=== PATIENT | male | born 1985 ===

== ENCOUNTER 2016-08-14 13:24 | Emergency (ER) | payer OTHER ==
--- NOTE | 2016-08-14 14:37 | ED NURSING NOTES ---
Clinical Report - Nurses Located Within [facility] [place] [address] 08/14/2016 13:25 Patient: YVONNE PRECIADO TRIAGE Acuity: LEVEL 3. Chief Complaint: DRUG OVERDOSE. Alert. No acute distress. FARIBA COMA SCORE: Fariba Coma Scale: 15- eyes open spontaneously (4); best verbal response- oriented x 4 (5); best motor response- obeys commands (6). --13:32 Flores Fitzpatrick R.N. 13:26 08/14/16. BP: 133/74. HR: 108. RR: 20. O2 saturation: 98%. Temp: 98.1 F (oral). Pain level now: 0/10. --13:32 Flores Fitzpatrick R.N. Weight: 77.1 kg stated. Height/Length: 69 inches Per Patient. BMI: 25.1. --13:30 Flores Fitzpatrick R.N. Medications None. --13:28 Flores Fitzpatrick R.N. Allergies No Known Drug Allergy. --13:28 Flores Fitzpatrick R.N. History Arrived by EMS. Historian: EMS and patient. Unaccompanied. Primary physician (none). This occurred just prior to arrival. ( Pt states he swallowed "4 times what I usually smoke" of meth in an attempt to hide the meth from the police.). 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 SOCIAL HX: Current every day heavy tobacco smoker (cigarette)- less than 1 pack per day. History of heavy drug use: heroin, methamphetamines, marijuana. No alcohol use. FALL RISK ASSESSMENT: Fall risk assessment completed. No fall risk identified. NUTRITIONAL RISK ASSESSMENT: The nutritional risk assessment revealed no deficiencies. FUNCTIONAL ASSESSMENT: Functional assessment: no impairments noted. LEARNING NEEDS ASSESSMENT: The learning needs assessment revealed no barriers. SKIN INTEGRITY ASSESSMENT: Skin integrity risk assessment completed. No skin integrity risk identified. --13:32 Flores Fitzpatrick R.N. Assessment GENERAL / NEURO / PSYCH: Alert. Oriented X 4. Appears in no acute distress. Patient appears calm and cooperative. RESPIRATORY: Respirations not labored. CVS: Capillary refill less than 2 seconds. GI / : Abdomen soft and nontender. SKIN: Mucous membranes are pink. Skin is warm and dry. --13:32 Flores Fitzpatrick R.N. Interventions ID band on patient. To treatment room. --13:32 Flores Fitzpatrick R.N. PHYSICAL ASSESSMENT 13:32 08/14/16. Ambulatory to room. GENERAL / NEURO / PSYCH: Alert. Oriented X 4. Appears in no acute distress. Patient appears calm and cooperative. Gag reflex present. Speech within normal limits. RESPIRATORY: Respirations not labored. CVS: Capillary refill less than 2 seconds. GI / : Abdomen soft and nontender. SKIN: Skin intact. Skin is warm and dry. Skin color is within normal limits. Affect appears within normal limits. --13:32 Flores Fitzpatrick R.N. NURSING PROGRESS NOTES grain sampler, pulse oximeter and NIBP monitor placed on patient; monitor alarms on. Patient gowned. Two patient identifiers checked. Call light placed in reach. Side rails up x 1. Bed placed in lowest position. Brakes of bed on. Patient ready for evaluation- chart flagged and PAGINATOR notified. --13:32 Flores Fitzpatrick R.N. 13:36 08/14/2016 Site #1 started via IV in the left antecubital space with an 20g angiocath, with aseptic technique and good blood return; one attempt. Blood drawn: rainbow set. Labeled in the presence of the patient and sent to the lab. Saline lock flushed with 10 mL saline. --13:36 Flores Fitzpatrick R.N. EKG time: (1328). EKG was ordered, performed by a tech and shown to the ED physician. --14:01 Ju Haq 14:04 08/14/16. Checked patient name and birthdate: patient confirmed urine collected with return of yellow-colored clear urine; sample sent to lab for urinalysis and drug screen. Specimen labeled in the presence of the patient. --14:04 Flores Fitzpatrick R.N. DISPOSITION / DISCHARGE Departure time: 14:36 Aug 14 2016. Condition at departure: stable. The patient left the Emergency Department against medical advice; patient was accompanied by a custodial manager. The patient appears to be alert, oriented x4, coherent and in no acute distress. The patient notified the ED staff prior to leaving the department and stated is leaving the ED (personal). Prior to leaving the ED, he was advised to stay for completion of treatment and return if needed. He was informed of the risks of leaving and verbalized understanding of these risks. Patient signed form prior to leaving. He left the Emergency Department ambulatory and via private vehicle. --14:36 Flores Fitzpatrick R.N. 14:33 08/14/16. BP: 142/76. HR: 108. RR: 18. O2 saturation: 100% on room air. Temp: 98.4 F. Pain level now: 0/10. --14:36 Flores Fitzpatrick R.N. 14:36 08/14/2016 Site #1 removed upon discharge. Catheter intact. Manual pressure and bandage applied. --14:36 Flores Fitzpatrick R.N. Locked/Released at 08/14/2016 17:00 by Flores Fitzpatrick R.N.
--- NOTE | 2016-08-14 14:37 | ED ORDER SUMMARY ---
..... Patient: YVONNE PRECIADO OrderSheet [facility] VisitID: [id number] [place] [address] 31y, M Registration Date/Time: 08/14/2016 ORDER SHEET Weight: 77.1 kg (stated) Allergies: No Known Drug Allergy GENERAL ORDERS: Oven Tender Bagels (Continuous) (13:34 08/14/2016 HBivens A.R.N.P.) (13:35 MWinterer R.N.) Abdomen 1V Upright Urgent (13:34 08/14/2016 HBivens A.R.N.P.) (Ack 13:38 KHoerner) (14:07 MWinterer R.N.) CBC w Diff Urgent (13:35 08/14/2016 HBivens A.R.N.P.) (Ack 13:38 KHoerner) (13:38 MWinterer R.N.) CMP Urgent (13:35 08/14/2016 HBivens A.R.N.P.) (Ack 13:38 KHoerner) (13:38 MWinterer R.N.) UA-Culture if indicated Urgent (13:35 08/14/2016 HBivens A.R.N.P.) (Ack 13:38 KHoerner) (14:03 MWinterer R.N.) Urine Drug Screen Urgent (13:35 08/14/2016 HBivens A.R.N.P.) (Ack 13:38 KHoerner) (14:03 MWinterer R.N.) CPK Urgent (13:35 08/14/2016 HBivens A.R.N.P.) (Ack 13:38 KHoerner) (13:38 MWinterer R.N.) Troponin-I Urgent (13:35 08/14/2016 HBivens A.R.N.P.) (Ack 13:38 KHoerner) (13:38 MWinterer R.N.) EKG - ER Stat (13:35 08/14/2016 HBivens A.R.N.P.) (13:36 MWinterer R.N.) - (please call poison control) (13:35 08/14/2016 HBivens A.R.N.P.) (13:55 MWinterer R.N.) MEDICATION ORDERS: IV FLUIDS: IV Saline Lock (13:35 08/14/2016 HBivens A.R.N.P.) (Ack 13:36 MWinterer R.N.) (13:38 MWinterer R.N.) ORDER SHEET NOTES: [Electronically signed by Heike RaiRAfshinNAfshinPAfshin (14:41 08/14/2016)] [Electronically signed by Flores Fitzpatrick R.N. (17:00 08/14/2016)] [Electronically locked/signed by Flores Fitzpatrick R.N. (17:00 08/14/2016)]
--- NOTE | 2016-08-14 14:37 | ED CLINICAL REPORT ---
Clinical Report - Physicians/Mid Levels [facility] [address] [place] [address] 08/14/2016 13:25 Patient: YVONNE PRECIADO Time Seen: 1328; upon arrival, initial patient contact, initial documentation, patient care assumed. Arrived- By ambulance. Historian- patient and EMS personnel. HISTORY OF PRESENT ILLNESS Chief Complaint: INGESTION. This occurred just prior to arrival. Incident was witnessed. The substance is not a foreign body or household product. ( pt admits to swallowing bag with meth rocks in it to attempt to hide it from police). Initially, he did not exhibit any symptoms. The patient had no treatment prior to arrival. The patient has not been choking, wheezing, dyspneic or exhibiting abnormal behavior. He has not had stridor, a cough or abdominal pain. Recent medical care: Not recently seen/assessed. REVIEW OF SYSTEMS No headache, dizziness, chest pain, palpitations or difficulty breathing. All systems otherwise negative, except as recorded above. PAST HISTORY Negative. SOCIAL HISTORY Heavy tobacco smoker. History of heavy IV drug use: heroin, methamphetamines, marijuana. Recently used drugs. Under influence in ED. No alcohol use. Is a local resident. FAMILY HISTORY Negative. ADDITIONAL NOTES The nursing notes have been reviewed with agreement regarding the chief complaint, HPI, ROS, PMH and patient medications and allergies. PHYSICAL EXAM Vital Signs: 08/14/2016 13:26 BP: 133/74. HR: 108. RR: 20. O2 saturation: 98%. Temp: 98.1 F. Pain level now: 0/10. Have been reviewed as abnormal and appear to be correct. Blood pressure normal. Tachycardic. Respiratory rate normal. Temperature normal. Oxygen saturation normal. Appearance: Alert alert. Oriented X3. No acute distress. Attentive. He makes eye contact. Active. Head: Atraumatic. Eyes: Pupils equal, round and reactive to light. Conjunctivae and eyelids normal. ENT: Nose normal. Pharynx normal. Neck: Neck supple. No neck mass. CVS: Heart rate / rhythm abnormal. Tachycardia (ventricular rate = 106). Strong peripheral pulses. Heart sounds normal. Respiratory: No respiratory distress. Breath sounds normal. Abdomen: Soft and nontender. No organomegaly. ( Normal bowel sounds in all 4 quadrants). Back: Normal inspection. Skin: Skin warm and dry. Normal skin color. No rash. Normal skin turgor. Extremities: Normal range of motion in extremities. Extremities nontender. Extremities atraumatic. Neuro: Mental status is normal for the patient's age. No motor deficit or sensory deficit. LABS, X-RAYS, AND EKG EKG: EKG time: (1328). No acute process. No acute ischemia. Regular narrow-complex tachycardia (103). Sinus tachycardia. Normal EKG. The study has been interpreted contemporaneously by me (and dr morales). The EKG appears to be a good tracing. Interpretation time: 1328. Laboratory Tests: CBC w Diff: (RENAY: 08/14/2016 13:35) ( [facility] 08/14/2016 13:54) Final results Test Result Flag Units (Reference) WHITE BLOOD COUNT 8.4 K/uL (4.5-11.5) RED BLOOD COUNT 4.41 L M/uL (4.50-5.90) HEMOGLOBIN 14.2 gm/dL (13.5-17.5) HEMATOCRIT 42.0 % (41.0-53.0) MEAN CELL VOLUME 95 fL (80-100) MEAN CORPUSCULAR HGB 32 pg (26-34) MEAN CORPUSCULAR HGB CONC 34 g/dL (31-37) RED CELL DISTRIBUTION WIDTH 12.6 % (11.6-14.8) PLATELET COUNT 388 K/uL (150-400) LYMPH % 48.2 H % (25-40) MONO % 4.9 % (3-14) GRANULOCYTE % 46.9 CMP: (RENAY: 08/14/2016 13:35) ( [facility] 08/14/2016 14:08) Final results Test Result Flag Units (Reference) GLUCOSE 126 H mg/dL (70-110) BUN 9 mg/dL (7-18) CREATININE 1.1 mg/dL (0.6-1.3) Estimated GFR >60 mL/min Estimated GFR- >60 mL/min Note: Persistent reduction over 3 months in eGFR<60 mL/min/1.73 m2 defines CKD. Patients with eGFR values>=60 mL/min/1.73 m2 may also have CKD if evidence ofpersistent proteinuria. Additional information may be foundat www.kidney.org. SODIUM 142 mmol/L (136-145) POTASSIUM 3.6 mmol/L (3.5-5.1) CHLORIDE 106 mmol/L (98-107) CARBON DIOXIDE 30 mmol/L (21-32) CALCIUM 9.0 mg/dL (8.5-10.1) TOTAL PROTEIN 7.3 g/dL (6.4-8.2) ALBUMIN 4.0 g/dL (3.3-5.0) BILIRUBIN, TOTAL 0.3 mg/dL (0.0-1.0) ALKALINE PHOSPHATASE 50 U/L (46-116) AST (SGOT) 12 L U/L (15-37) ALT (SGPT) 23 U/L (12-78) CPK 128 U/L (24-260) TROPONIN I <0.05 L ng/mL (0.00-1.5) TROPONIN REFERENCE RANGE:<0.1 NEGATIVE0.1-1.5 INDETERMINANT>1.5 POSITIVE . PROGRESS AND PROCEDURES Course of Care: spoke to police re situation, pt not under arrest or in police custody had staff call poison control, they recommendation, to observe pt approx 8 hrs staff reporting pt doesn't want to stay pt again telling staff he wants to leave, family emergency at home, he wants to go 14:35 08/14/16. 3rd time pt telling nurse he wants to go, RN Flores and Carlos at bedside, ama form completed, pt aware of recommendation from poison control, to be observed for 8 hrs, and could happen once the meth got digested in his system, pt still wanting to leave. 08/14/2016 14:33 BP: 142/76. HR: 108. RR: 18. O2 saturation: 100%. Temp: 98.4 F. Pain level now: 0/10. Vital Signs: have been reviewed as abnormal. Blood pressure normal. Tachycardic. Respiratory rate normal. Temperature normal. Oxygen saturation normal. Differential Diagnosis: Other possible considerations: substance abuse, si, od, ingestion, mi, palpitations. Above considerations are based on history, physical exam, reassessment, laboratory data, X-Ray data and EKG. Differential diagnosis was discussed with patient. CLINICAL IMPRESSION Intentional ingestion of medication. (meth). (Electronically signed by Heike aRi A.R.N.P. 08/14/2016 14:41)
--- NOTE | 2016-08-14 14:37 | ED NURSING NOTES ---
Clinical Report - Nurses [facility] [place] [address] 08/14/2016 13:25 Patient: YVONNE PRECIADO TRIAGE Acuity: LEVEL 3. Chief Complaint: DRUG OVERDOSE. Alert. No acute distress. FARIBA COMA SCORE: Fariba Coma Scale: 15- eyes open spontaneously (4); best verbal response- oriented x 4 (5); best motor response- obeys commands (6). --13:32 Florse Fitzpatrick R.N. 13:26 08/14/16. BP: 133/74. HR: 108. RR: 20. O2 saturation: 98%. Temp: 98.1 F (oral). Pain level now: 0/10. --13:32 Flores Fitzpatrick R.N. Weight: 77.1 kg stated. Height/Length: 69 inches Per Patient. BMI: 25.1. --13:30 Flores Fitzpatrick R.N. Medications None. --13:28 Flores Fitzpatrick R.N. Allergies No Known Drug Allergy. --13:28 Flores Fitzpatrick R.N. History Arrived by EMS. Historian: EMS and patient. Unaccompanied. Primary physician (none). This occurred just prior to arrival. ( Pt states he swallowed "4 times what I usually smoke" of meth in an attempt to hide the meth from the police.). 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 SOCIAL HX: Current every day heavy tobacco smoker (cigarette)- less than 1 pack per day. History of heavy drug use: heroin, methamphetamines, marijuana. No alcohol use. FALL RISK ASSESSMENT: Fall risk assessment completed. No fall risk identified. NUTRITIONAL RISK ASSESSMENT: The nutritional risk assessment revealed no deficiencies. FUNCTIONAL ASSESSMENT: Functional assessment: no impairments noted. LEARNING NEEDS ASSESSMENT: The learning needs assessment revealed no barriers. SKIN INTEGRITY ASSESSMENT: Skin integrity risk assessment completed. No skin integrity risk identified. --13:32 Flores Fitzpatrick R.N. Assessment GENERAL / NEURO / PSYCH: Alert. Oriented X 4. Appears in no acute distress. Patient appears calm and cooperative. RESPIRATORY: Respirations not labored. CVS: Capillary refill less than 2 seconds. GI / : Abdomen soft and nontender. SKIN: Mucous membranes are pink. Skin is warm and dry. --13:32 Flores Fitzpatrick R.N. Interventions ID band on patient. To treatment room. --13:32 Flores Fitzpatrick R.N. PHYSICAL ASSESSMENT 13:32 08/14/16. Ambulatory to room. GENERAL / NEURO / PSYCH: Alert. Oriented X 4. Appears in no acute distress. Patient appears calm and cooperative. Gag reflex present. Speech within normal limits. RESPIRATORY: Respirations not labored. CVS: Capillary refill less than 2 seconds. GI / : Abdomen soft and nontender. SKIN: Skin intact. Skin is warm and dry. Skin color is within normal limits. Affect appears within normal limits. --13:32 Flores Fitzpatrick R.N. NURSING PROGRESS NOTES mixer diamond powder, pulse oximeter and NIBP monitor placed on patient; monitor alarms on. Patient gowned. Two patient identifiers checked. Call light placed in reach. Side rails up x 1. Bed placed in lowest position. Brakes of bed on. Patient ready for evaluation- chart flagged and RADIOCOMMUNICATIONS TECHNICIAN notified. --13:32 Flores Fitzpatrick R.N. 13:36 08/14/2016 Site #1 started via IV in the left antecubital space with an 20g angiocath, with aseptic technique and good blood return; one attempt. Blood drawn: rainbow set. Labeled in the presence of the patient and sent to the lab. Saline lock flushed with 10 mL saline. --13:36 Flores Fitzpatrick R.N. EKG time: (1328). EKG was ordered, performed by a tech and shown to the ED physician. --14:01 Ju Haq 14:04 08/14/16. Checked patient name and birthdate: patient confirmed urine collected with return of yellow-colored clear urine; sample sent to lab for urinalysis and drug screen. Specimen labeled in the presence of the patient. --14:04 Flores Fitzpatrick R.N. DISPOSITION / DISCHARGE Departure time: 14:36 Aug 14 2016. Condition at departure: stable. The patient left the Emergency Department against medical advice; patient was accompanied by a commercial real estate associate. The patient appears to be alert, oriented x4, coherent and in no acute distress. The patient notified the ED staff prior to leaving the department and stated is leaving the ED (personal). Prior to leaving the ED, he was advised to stay for completion of treatment and return if needed. He was informed of the risks of leaving and verbalized understanding of these risks. Patient signed form prior to leaving. He left the Emergency Department ambulatory and via private vehicle. --14:36 Flores Fitzpatrick R.N. 14:33 08/14/16. BP: 142/76. HR: 108. RR: 18. O2 saturation: 100% on room air. Temp: 98.4 F. Pain level now: 0/10. --14:36 Flores Fitzpatrick R.N. 14:36 08/14/2016 Site #1 removed upon discharge. Catheter intact. Manual pressure and bandage applied. --14:36 Flores Fitzpatrick R.N. Locked/Released at 08/14/2016 17:00 by Flroes Fitzpatrick R.N.
--- NOTE | 2016-08-14 14:37 | ED ORDER SUMMARY ---
..... Patient: YVONNE PRECIADO OrderSheet [facility] VisitID: [id number] [place] [address] 31y, M Registration Date/Time: 08/14/2016 ORDER SHEET Weight: 77.1 kg (stated) Allergies: No Known Drug Allergy GENERAL ORDERS: Director Volunteer Services (Continuous) (13:34 08/14/2016 HBivens A.R.N.P.) (13:35 MWinterer R.N.) Abdomen 1V Upright Urgent (13:34 08/14/2016 HBivens A.R.N.P.) (Ack 13:38 KHoerner) (14:07 MWinterer R.N.) CBC w Diff Urgent (13:35 08/14/2016 HBivens A.R.N.P.) (Ack 13:38 KHoerner) (13:38 MWinterer R.N.) CMP Urgent (13:35 08/14/2016 HBivens A.R.N.P.) (Ack 13:38 KHoerner) (13:38 MWinterer R.N.) UA-Culture if indicated Urgent (13:35 08/14/2016 HBivens A.R.N.P.) (Ack 13:38 KHoerner) (14:03 MWinterer R.N.) Urine Drug Screen Urgent (13:35 08/14/2016 HBivens A.R.N.P.) (Ack 13:38 KHoerner) (14:03 MWinterer R.N.) CPK Urgent (13:35 08/14/2016 HBivens A.R.N.P.) (Ack 13:38 KHoerner) (13:38 MWinterer R.N.) Troponin-I Urgent (13:35 08/14/2016 HBivens A.R.N.P.) (Ack 13:38 KHoerner) (13:38 MWinterer R.N.) EKG - ER Stat (13:35 08/14/2016 HBivens A.R.N.P.) (13:36 MWinterer R.N.) - (please call poison control) (13:35 08/14/2016 HBivens A.R.N.P.) (13:55 MWinterer R.N.) MEDICATION ORDERS: IV FLUIDS: IV Saline Lock (13:35 08/14/2016 HBivens A.R.N.P.) (Ack 13:36 MWinterer R.N.) (13:38 MWinterer R.N.) ORDER SHEET NOTES: [Electronically signed by Heike RaiRAfshinNAfshinPAfshin (14:41 08/14/2016)] [Electronically signed by Flores Fitzpatrick R.N. (17:00 08/14/2016)] [Electronically locked/signed by Flores Fitzpatrick R.N. (17:00 08/14/2016)]
--- NOTE | 2016-08-14 15:00 | DIAGNOSTIC IMAGING REPORT ---
PROCEDURE: XR ABDOMEN 1 VIEW UPRIGHT INDICATION: FB TECHNIQUE: AP upright view. COMPARISON: None. FINDINGS: No evidence of a radiopaque foreign body. Moderate stool. Nonspecific bowel gas pattern. Bones are unremarkable. IMPRESSION: 1. No evidence of a radiopaque foreign body.
--- NOTE | 2016-08-14 17:00 | ED MED RECONCILIATION SUMMARY ---
Patient: YVONNE PRECIADO Medication Reconciliation Report [facility] VisitID: [id number] [address] [place] [address] 31y, M Registration Date/Time: 08/14/2016 Weight: 77.1 kg Height/Length: 69 in. BMI: 25.1 ALLERGIES: No Known Drug Allergy The patient's Home Medications are listed below: NONE. The source(s) of the original Home Medication information: Not obtained. The following Medications were given to the patient in the Emergency Department: None. The following Medications were prescribed to the patient: None.
--- NOTE | 2016-08-14 17:00 | ED MAR SUMMARY ---
..... Medication Administration Record [facility] [address] [place], [place] [id number] Patient: YVONNE PRECIADO Visit ID: [id number] 31y, M Weight: 77.1 kg Height/Length: 69 in BMI: 25.1 ALLERGIES: No Known Drug Allergy
--- NOTE | 2016-08-14 17:00 | ED DISCHARGE INSTRUCTIONS ---
Patient: YVONNE PRECIADO General Instructions [facility] VisitID: [id number] [place] [address] 31y, M Registration Date/Time: 08/14/2016 Intentional ingestion of medication. (meth). ADDITIONAL INFORMATION Overdose, Intentional (Adult: Psych Evaluation) You have been evaluated and treated for taking a drug or chemical product with the intent to harm yourself. There is no sign of a toxic effect at this time. It is not likely that any new symptoms will appear. As a safeguard, watch for new symptoms during the next 24 hours (see below). The exact symptom will depend on the type of drug or chemical taken. An intentional overdose is likely to be a sign that you are depressed, or that you are very angry with yourself or someone else. In order to reduce the risk of harming yourself, we will arrange for you to have a psychiatric evaluation. Home Care: If LIQUID CHARCOAL was given to neutralize what was swallowed, it will cause a black color to the stools for 1-2 days. Usually, a laxative (sorbitol) is given with charcoal to speed the removal of any toxins from the intestinal tract. This may cause diarrhea for up to 24 hours. If no laxative was given with charcoal, you may get constipated. If this occurs, you may take an [id number] laxative such as Dulcolax pills or suppository. Follow Up with your doctor if all symptoms do not resolve within 24 hours or if constipation is not relieved by one or two doses of laxatives. If you are being discharged for immediate evaluation at a psychiatric hospital or clinic on a voluntary basis, you must go directly there with a responsible adult. If you have been placed on a legal 72 hour psychiatric hold, a ride to a psychiatric facility will be arranged for you. Get Prompt Medical Attention if any of the following occur: Excess drowsiness or inability to be awakened Rapid heart beat, you feel shaky, or you have a seizure Fast breathing (over 25 breaths/minute) or slow breathing (less than 8 breaths/minute) Feeling shortness of breath Fever of 100.4F (38C) or higher, or as directed by your healthcare provider Vomiting or diarrhea for more than 24 hours Blood in stools or vomit (black or red color) Chest or abdominal pain Dizziness, weakness or fainting Thoughts of harming yourself again You have been given the following additional information: Overdose, Intentional (Adult) (Electronically signed by Heike Rai A.R.N.P. 08/14/2016 14:41)
--- NOTE | 2016-08-14 17:00 | ED MAR SUMMARY ---
..... Medication Administration Record [facility] [address] [place], [place] [id number] Patient: YVONNE PRECIADO Visit ID: [id number] 31y, M Weight: 77.1 kg Height/Length: 69 in BMI: 25.1 ALLERGIES: No Known Drug Allergy
--- NOTE | 2016-08-14 17:00 | ED DISCHARGE INSTRUCTIONS ---
Patient: YVONNE PRECIADO General Instructions [facility] VisitID: [id number] [place] [address] 31y, M Registration Date/Time: 08/14/2016 Intentional ingestion of medication. (meth). ADDITIONAL INFORMATION Overdose, Intentional (Adult: Psych Evaluation) You have been evaluated and treated for taking a drug or chemical product with the intent to harm yourself. There is no sign of a toxic effect at this time. It is not likely that any new symptoms will appear. As a safeguard, watch for new symptoms during the next 24 hours (see below). The exact symptom will depend on the type of drug or chemical taken. An intentional overdose is likely to be a sign that you are depressed, or that you are very angry with yourself or someone else. In order to reduce the risk of harming yourself, we will arrange for you to have a psychiatric evaluation. Home Care: If LIQUID CHARCOAL was given to neutralize what was swallowed, it will cause a black color to the stools for 1-2 days. Usually, a laxative (sorbitol) is given with charcoal to speed the removal of any toxins from the intestinal tract. This may cause diarrhea for up to 24 hours. If no laxative was given with charcoal, you may get constipated. If this occurs, you may take an [id number] laxative such as Dulcolax pills or suppository. Follow Up with your doctor if all symptoms do not resolve within 24 hours or if constipation is not relieved by one or two doses of laxatives. If you are being discharged for immediate evaluation at a psychiatric hospital or clinic on a voluntary basis, you must go directly there with a responsible adult. If you have been placed on a legal 72 hour psychiatric hold, a ride to a psychiatric facility will be arranged for you. Get Prompt Medical Attention if any of the following occur: Excess drowsiness or inability to be awakened Rapid heart beat, you feel shaky, or you have a seizure Fast breathing (over 25 breaths/minute) or slow breathing (less than 8 breaths/minute) Feeling shortness of breath Fever of 100.4F (38C) or higher, or as directed by your healthcare provider Vomiting or diarrhea for more than 24 hours Blood in stools or vomit (black or red color) Chest or abdominal pain Dizziness, weakness or fainting Thoughts of harming yourself again You have been given the following additional information: Overdose, Intentional (Adult) (Electronically signed by Heike Rai A.R.N.P. 08/14/2016 14:41)
--- NOTE | 2016-08-14 17:00 | ED MED RECONCILIATION SUMMARY ---
Patient: YVONNE PRECIADO Medication Reconciliation Report [facility] VisitID: [id number] [address] [place] [address] 31y, M Registration Date/Time: 08/14/2016 Weight: 77.1 kg Height/Length: 69 in. BMI: 25.1 ALLERGIES: No Known Drug Allergy The patient's Home Medications are listed below: NONE. The source(s) of the original Home Medication information: Not obtained. The following Medications were given to the patient in the Emergency Department: None. The following Medications were prescribed to the patient: None.
== END 2016-08-14 14:35 | disposition left against medical advice (07) ==
LOC: ED SRH 13:24
DX: T43.622A Poisoning by amphetamines, intentional self-harm, initial encounter (principal); X58.XXXA Exposure to other specified factors, initial encounter; Y93.9 Activity, unspecified; Y92.9 Unspecified place or not applicable; Y99.9 Unspecified external cause status; F17.210 Nicotine dependence, cigarettes, uncomplicated; F12.10 Cannabis abuse, uncomplicated; F19.10 Other psychoactive substance abuse, uncomplicated
CPT/HCPCS: 90004; 90100; 90616; 92610; 92760; 92761; 92762; 92763; 92764; 92765; 92766; 92767; 95059